=== PATIENT | female | born 1980 | race African-American/Black ===

== ENCOUNTER 2018-03-17 15:29 | Emergency (ER) | payer SELFPAY ==
[~2018-03-17] VITALS: Ht 162.6 cm; Wt 88.0 kg
[2018-03-17 17:30] VITALS: BP 135/80
[2018-03-17] MEDS ORDERED: KETOROLAC 60 MG/2 ML INJ. IM ONE (17:45)
[2018-03-17 17:57] LABS: BILIRUBIN,URINE NEGATIVE (NEG); CLARITY,URINE CLOUDY; COLOR,URINE YELLOW; NITRITE,URINE NEGATIVE (NEG); PROTEIN,URINE NEGATIVE (NEG-TRACE); UROBILINOGEN,URINE 0.2 mg/dL (0.2 mg/dL)
[2018-03-17 18:07] LABS: AMORPHOUS SEDIMENT,UR PRESENT /HPF; BACTERIA,URINE MODERATE /HPF (0-FEW); RBC,URINE 0 /HPF (0-2); SQUAMOUS EPITHELIAL CELL,UR MOD /LPF
[2018-03-17] MEDS ORDERED: CYCL5TAB PO (18:21)
[2018-03-17] MEDS ORDERED: SULF1TAB24 PO (18:21)
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
== END 2018-03-17 18:42 | disposition home or self-care (01) ==
LOC: ER 15:29
DX: M54.5 Low back pain (principal); N39.0 Urinary tract infection, site not specified; Z98.890 Other specified postprocedural states; V49.9XXA Car occupant (driver) (passenger) injured in unspecified traffic accident, initial encounter; Y93.89 Activity, other specified; Y92.410 Unspecified street and highway as the place of occurrence of the external cause; Y99.8 Other external cause status
CPT/HCPCS: 81001; 87086; 96372; 99284; J1885